=== PATIENT | female | born 1945 | race Caucasian/White ===

== ENCOUNTER → 2019-03-30 | Outpatient (CLI) | payer OTHER, BC ==
[~2019-03-30] VITALS: Ht 162.6 cm; Wt 82.1 kg
[~2019-03-30] MED LIST: AMARYL2 M1 PO; ASTAGRAF XL0.5 MG PO; AVAPRO75 MG PO; DULOXETINE HCL60 MG PO; ISOSORBIDE MONO60 M1 PO; LIPITOR80 MG PO; MELOXICAM15 MG PO; METFORMIN HCL500 M3 PO; NEURONTIN 300300 M1 PO; PLAVIX 75 MG TA75 MG PO; PROPRANOLOL 8080 MG PO; RAYOS5 MG PO; REMERON15 M2 PO; SIROLIMUS MISCELL; TOPAMAX100 MG PO; TRAMADOL 50 MG50 MG PO; VITAMIN D5000 UNIT PO; ZETIA10 MG PO; ZOVIRAX200 MG PO
[2019-03-30 11:00] VITALS: BP 143/80
--- NOTE | 2019-03-30 11:32 | NUR ---
Pain Clinic Assessment: 1. History of Osteoarthritis: BACK HANDS History of Rheumatoid Arthritis: Not Applicable 2. Height: 5 ft. 4 in. 162.6 cm. Weight: 181.0 lb. oz. 82.101 kg. Patient's BMI: 31.1 3. Vital Signs: BP: 143/80 Pulse: 95 Resp: 16 Temp: 02 Sat: 100 ECG Mon: 4. Pain Intensity: 9 5. Fall Risk: Dizziness: N Needs help standing or walking: N Fallen in the last 3 months: N Fall risk comments: 6. Patient on Blood Thinner: PLAVIX 7. History of Hypertension: N 8. Opioid Therapy greater than 6 weeks: N Opiate Contract Signed: 9. Risk Assessment Tool Provided: LOW RISK 08/01 10. Functional Assessment Tool: 53 11. Recreational Drug Use: Never Drug Type: Tobacco Use: Never Smoker Tobacco Type: Amount or Packs/day: How Many Years: Alcohol Use: Yes Frequency: Weekly Quant: 3
--- NOTE | 2019-04-12 13:04 | HPC ---
[facility] [address] [address] PAIN MANAGEMENT CONSULTATION Name: VENICE POWERS Room #: [facility].#: [id number] Admission: 03/30/19 Attend Phys: Alex Wall DO Discharge: Date of : 43 Report #: [id number] THIS REPORT FOR: //name// CC: Peng Muñoz DATE OF SERVICE: 03/30/2019 CHIEF COMPLAINT: Low back pain, bilateral lower extremity pain, left greater than right. HISTORY OF PRESENT ILLNESS: As you know, the patient is a very pleasant 73-year-old female who reports acute onset of low back pain, bilateral lower extremity pain, left greater than right that occurred 03/02/2019. The patient denies any specific injury or trauma that may have led to symptom development. She indicates that the pain became so intense, she could not walk or go about activities of daily living. She sought evaluation through her primary care physician, Dr. Ryley Muñoz, who trialled conservative treatments initially and sent the patient for imaging studies. She underwent MRI of the lumbar spine, which showed multilevel spinal stenosis and marked degenerative changes of the lumbar spine. The findings were such that the patient was sent to our clinic to discuss treatment options. She has not trialled neuropathic pain medications and has not been involved in physical therapy. The patient indicates today pain is continuous, describes the pain as burning, shooting, stabbing and tender, places current pain score 9/10, daily average at 8-9/10, worst pain has been is 10/10. The patient states that standing for any length of time, sitting for any length of time exacerbates symptoms, lying down, tends to improve pain. She has been referred to our service to discuss treatment options for suspected lumbar radiculopathy secondary to severe central canal stenosis. PAST MEDICAL HISTORY: 1. Diabetes mellitus type 2. 2. History of heart transplant, on antirejection medications. 3. History of basal cell carcinoma. 4. Hypertension. 5. Chronic anticoagulation. PAST SURGICAL HISTORY: 1. Heart transplant. 2. Bilateral hip replacements. 3. Four rotator cuff repairs. 4. Cholecystectomy. [facility] [address] [place] [address] PAIN MANAGEMENT CONSULTATION Name: PRIYAVENICESvetlana PONCE [id number] Admission: 03/30/19 Attend Phys: Alex Wall DO Discharge: Date of : 43 Report #: [id number] SOCIAL HISTORY: The patient denies tobacco, IV or illicit drug use. Admits to 3 alcoholic beverages per week. She is retired, not receiving workmen's compensation nor is she trying to obtain disability benefits. She is not in litigation in regards to pain. She is accompanied by her present in room today. REVIEW OF SYSTEMS: Positive for fatigue, weakness, frequent and recurrent headaches, chronic sinus problems with rhinitis, heart trouble, shortness of breath walking or lying flat, nervousness, depression, low back pain, lower extremity pain with paresthesias. All other review of systems negative per 12-point review of systems other than those listed in history of present illness. Pain impact score 42/70 indicating [id number] interference of daily activities secondary to pain. ALLERGIES: PENICILLIN. CURRENT MEDICATIONS: Cholecalciferol 5000 units once a day, Sirolimus 5 grams once a day, acyclovir 200 mg once a day, glimepiride 2 mg once a day, isosorbide dinitrate 60 mg once a day, duloxetine 60 mg once a day, propranolol 80 mg once a day, prednisone 5 mg once a day, mirtazapine 15 mg per day, metformin 500 mg once a day, tacrolimus 0.5 mg once a day, topiramate 100 mg once a day, atorvastatin 80 mg once a day, Irbesartan 75 mg per day, meloxicam 15 mg per day, Plavix 75 mg per day, Zetia 10 mg per day. IMAGING: MRI lumbar spine obtained 03/05/2019 shows T12-L1 unremarkable, L1-L2, minimal posterior degenerative changes, no central canal neural foraminal stenosis. L2-L3, left foraminal and lateral extraforaminal disk herniation compromising left neural foramen, producing effacement of the left L2 nerve root. No central canal stenosis, mild degenerative changes. L3-L4, no central canal stenosis, bilateral facet arthrosis and facet arthropathy, asymmetrical ligamentum flavum hypertrophy, mild to moderate right neural foraminal stenosis. There is mild to moderate left neural foraminal narrowing. L4-L5, mild degenerative disk bulging, moderate to marked degenerative facet arthropathy. This leads to moderate to marked central canal stenosis. There is moderate left and severe right neural foraminal stenosis. L5-S1 disk desiccation posterior bulging, severe facet arthrosis, marked degenerative canal stenosis, mild bilateral neural foraminal stenosis. PQRS: The patient has known arthritic changes of the lumbar spine and hands. No rheumatoid arthritis. She is placing pain intensity 9/10. She is not a fall risk, has not had a fall in last 3 months. She is on blood thinners in the form of Plavix. She is treated for hypertension. She is not on any opioids. She has a low opiate addiction potential. Pain impact score 43/70, [id number] [address] [address] PAIN MANAGEMENT CONSULTATION Name: VENICE POWERS Room #: [facility]#: [id number] Admission: 03/30/19 Attend Phys: Alex Wall DO Discharge: Date of : 43 Report #: [id number] interference of daily activities secondary to pain. PHYSICAL EXAMINATION: VITAL SIGNS: Blood pressure 143/80, pulse 95, respiratory rate 16 and unlabored. The patient is 100% on room air. Height 5 feet 4 inches tall, weight 181 pounds, BMI calculated 31.1. GENERAL: Well-developed, well-nourished, well-hydrated 73-year-old female appearing stated age, pain is rated around 9/10. HEENT: Normocephalic, atraumatic. Pupils equal, round, reactive to light. Extraocular muscles are intact. Sclerae nonicteric without injection. NEUROLOGIC: Cranial nerves 2-12 grossly intact. Speech is fluent. The patient deemed a good historian. LUNGS: Clear, no wheezes, rhonchi or rales. CARDIOVASCULAR: Regular. No appreciable gallop, no rub. Well-healed anterior surgical scar status post heart transplant. ABDOMEN: Soft, nontender with normoactive bowel sounds. EXTREMITIES: Show no clubbing, no cyanosis, no edema. MUSCULOSKELETAL: Lower extremity strength equal and symmetrical 5/5. Seated straight leg raising is negative. Supine straight leg raising is positive on the left. Ely's test is negative. Modified Gaenslen's positive for axial low back pain. Ankle clonus negative. Babinski is negative. Reflexes are decreased at patella and Achilles on the left when compared to the right. There is some gait abnormality left favored over right. ASSESSMENT: 1. Symptomatic lumbar radiculopathy. 2. Severe central canal stenosis of lumbar spine. 3. Displacement of lumbar intervertebral disk with radiculopathy. 4. Lumbosacral spondylosis with radiculopathy. 5. Severe neural foraminal stenosis of lumbar spine. 6. Facet arthropathy of the lumbar spine. 7. Lumbar degeneration. 8. Chronic intractable pain. PLAN: 1. Based on today's physical exam and the history the patient has provided, the description the patient uses in regards to pain as well as the location of symptoms and the findings of her MRI, likely source of the patient's pain is lumbar radiculopathy. We discussed with the patient the findings of her MRI taking over 21 minutes of time to review the MRI with the patient and describing how the findings therein correlate to the patient's symptoms. This was done with digital information as well as mottling to help the patient understand better. After reviewing the MRI and discussing the source of her pain, we discussed treatment options following was discussed with the patient today. We discussed physical therapy, stretching exercises and core strengthening as a [facility] [address] [place] [address] PAIN MANAGEMENT CONSULTATION Name: PRIYAVENICESvetlana PONCE [facility] [id number] Admission: 03/30/19 Attend Phys: Alex Wall DO Discharge: Date of : 43 Report #: [id number] to treat ongoing pain. We discussed medication management utilizing neuropathic pain medications. We discussed epidural injections for which the patient was referred to our clinic. We also discussed spinal cord stimulator therapy and surgical options. After reviewing the risks and benefits of all proposed treatment options, the patient chose to remain conservative with medication management changes. 2. The patient will be started on gabapentin initiating at 300 mg dose at night. She will start this tonight. In two nights, she will increase to 600 mg at night, then in four nights, increase to 900 mg at night. If no side effects and no improvement in symptoms, then continue to titrate the medication until reaching 3 tablets in the morning, 1 tablet at noon and 3 tablets at night. The patient was given a titration in written form to follow. We did prescribe the patient #180 tablets with 2 refills. The patient was advised to take the medication as directed. If she notes side effects of sleepiness, disorientation, confusion, mental slowing with the therapy, she is to reduce to the dose prior and continue the medication after contacting our clinic. 3. The patient was given a prescription of tramadol 50 mg dose 1 tab p.o. q.i.d. I have given the patient #90 tablets to be taken as needed. The patient states she has had tramadol in the past and it was effective for her. We will initiate this therapy for pain control. 4. We will see the patient back in followup visit in approximately one month. At that time, we will review the efficacy of today's medication management changes. If she wishes to return earlier if she may do so to undergo the first in a series of proposed lumbar epidural injections. The patient is hopeful to delay needing to undergo epidural injection as she is "terrified of the injections". We are hopeful the patient will see good improvement with medication management. 5. We wish to thank Dr. Muñoz for the opportunity to see this patient in consultation. We will keep you apprised of response to treatment as we address her lumbar radiculopathy secondary to central canal stenosis. Again, we wish to thank you for the opportunity to see the patient in consultation. <ELECTRONICALLY SIGNED> By: Alex Wall DO 04/12/19 1304 [id number] Alex Wall DO /philip
== END ==
LOC: PAIN 07:07
DX: M51.16 Intervertebral disc disorders with radiculopathy, lumbar region (principal); M47.26 Other spondylosis with radiculopathy, lumbar region; E11.9 Type 2 diabetes mellitus without complications; I10 Essential (primary) hypertension; Z96.643 Presence of artificial hip joint, bilateral; Z90.49 Acquired absence of other specified parts of digestive tract; Z79.891 Long term (current) use of opiate analgesic; Z79.899 Other long term (current) drug therapy; Z88.0 Allergy status to penicillin